=== PATIENT | female | born 2000 | race Asian ===

== ENCOUNTER 2022-03-01 09:49 | Emergency (ER) | payer BC, SELFPAY ==
[2022-03-01 10:06] VITALS: BP 106/76; PULSE 106; RESP 16; TEMP 36.8; O2SAT 95; BMI 20.1
--- NOTE | 2022-03-01 11:15 | ED.HA ---
HPI - Headache General Chief Complaint: Headache/Migraine Stated Complaint: Migraine Time Seen by Provider: 03/01/22 11:05 History of Present Illness HPI Narrative: This 21-year-old female comes in with headache that began 2 or 3 days ago. She has a history of migraine headaches. This 1 has not responded to her home medications. She reports nausea but has not had any vomiting. She does not report any neurologic deficits. This is not the worst headache of her life. Related Data Home Medications Medication Instructions Recorded Confirmed cetirizine 10 mg tablet 10 mg PO DAILY 03/01/22 03/01/22 mirtazapine 15 mg tablet 30 mg PO DAILY 03/01/22 03/01/22 norethindrone (contraceptive) 0.35 0.35 mg PO DAILY 03/01/22 03/01/22 mg tablet ondansetron 4 mg disintegrating 4 mg PO DAILY 03/01/22 03/01/22 tablet prazosin 1 mg capsule 1 mg PO DAILY 03/01/22 03/01/22 sumatriptan succinate 25 mg tablet 50 mg PO PRN 03/01/22 venlafaxine 75 mg capsule,extended 300 mg PO DAILY 03/01/22 03/01/22 release 24 hr Previous Rx's Medication Instructions Recorded ketorolac 10 mg tablet 10 mg PO Q8H 5 days #15 tabs 03/01/22 ondansetron HCl 4 mg tablet 4 mg PO Q6H #20 tabs 03/01/22 Allergies Allergy/AdvReac Type Severity Reaction Status Date / Time Penicillins Allergy Mild Verified 03/01/22 10:16 Review of Systems Status of ROS: Reports: 10 or more systems reviewed and unremarkable except as noted in History and below Narrative: Constitutional: No fevers, no weight gain or loss. Eyes: No discharge. No vision changes. HENT: No congestion, no sore throat, no ear pain. Cardiovascular: No chest pain, no palpitations. Respiratory: No shortness of breath, no wheezes, no cough. Gastrointestinal: No abdominal pain, no vomiting, no diarrhea. Genitourinary: No dysuria, no hematuria. Musculoskeletal: Normal range of motion. Skin: No rashes, no pruritis. Neurological: No dizziness, weakness, sensory change, speech change. Endo/Heme/Allergies: No bruising or bleeding. No polydipsia. Pysch: This patient admits to having ongoing depression symptoms and has thoughts of suicide but does not have any particular plan. She is seeing a therapist and states repeatedly that she does not feel unsafe to herself. She did have her antidepressant medicines increased a few weeks ago. All other systems reviewed and are negative. PFSH PFS Social History Smoking Status: Never smoker Do you use any of these nicotine containing products: None Second hand tobacco smoke exposure: No How often do you have a drink containing alcohol: never AUDIT-C Alcohol total score: 0 Non-prescribed substance use: denies use service: No Exam Narrative: Exam Narrative: Constitutional: Well-developed, well-nourished, no acute distress. She is tearful because of her migraine headache. HEENT: Normocephalic, atraumatic. Neck: Normal range of motion. Nontender. Supple. Heart: Intact distal pulses. Lungs: No chest discomfort. No wheezes, rhonchi, or rales. Abdomen: Nontender. Back: Normal range of motion. Extremities: Normal range of motion. No injury. Skin: Intact. No rash. Warm. No erythema or pallor. Neurologic: No altered sensation. No weakness. Alert and oriented. Psychiatric: No suicidality. No anxiety or depression. No insomnia. Nursing notes and vitals signs are reviewed. Const: Vital Signs, click to edit/add: Vital Signs - 24 hr 03/01/22 10:06 03/01/22 11:50 Temperature 98.2 F Pulse Rate [Right Pulse Oximeter] 106 H 107 H Respiratory Rate 16 20 Blood Pressure [Ri ght Upper Arm] 106/76 117/95 H Pulse Oximetry 95 98 Oxygen Delivery Me thod Room Air Room Air Course Vital Signs Vital signs: Initial Vital Signs Temperature 98.2 F 03/01/22 10:06 Temperature Source Temporal Artery Scan 03/01/22 10:06 Pulse Rate 106 H 03/01/22 10:06 Pulse Rhythm 03/01/22 10:06 Respiratory Rate 16 03/01/22 10:06 Blood Pressure 106/76 03/01/22 10:06 Blood Pressure Mean 86 03/01/22 10:06 Blood Pressure Position Sitting 03/01/22 10:06 Pulse Oximetry 95 03/01/22 10:06 Oxygen Delivery Method 03/01/22 10:06 Vital Signs Temperature 98.2 F 03/01/22 10:06 Pulse Rate 106 H 03/01/22 10:06 Respiratory Rate 16 03/01/22 10:06 Blood Pressure 106/76 03/01/22 10:06 Pulse Oximetry 95 03/01/22 10:06 Oxygen Delivery Method 03/01/22 10:06 Temperature 98.2 F 03/01/22 10:06 Pulse Rate 107 H 03/01/22 11:50 Respiratory Rate 20 03/01/22 11:50 Blood Pressure 117/95 H 03/01/22 11:50 Pulse Oximetry 98 03/01/22 11:50 Oxygen Delivery Method 03/01/22 11:50 MDM - Headache MDM Narrative Medical decision making narrative: This patient comes in with a typical migraine headache for her but symptoms have not resolved despite taking her home medicines. She states that she has run out of her nausea medicine. An IV was established where she received Toradol 30 mg, Benadryl 50 mg, and Zofran 4 mg. She states that her headache now is completely gone. I did revisit her statement to the nurse that she does have depression with suicidal thoughts. She states that this is nothing new for her and there is nothing worse in this regard. She does have a therapist that she is connected with and is taking medicines according to plan. She repeatedly reassures me that she is not on safe to herself. She is okay to return home. I did provide prescriptions for Zofran and Toradol. Discharge Plan Discharge Clinical Impression: Migraine Patient Disposition: Home, Self-Care Condition: Improved Additional Instructions: Use medications as needed and indicated. Follow up with MD and therapist or return if worsening symptoms occur. Prescriptions: New ondansetron HCl 4 mg tablet 4 mg PO Q6H Qty: 20 0RF ketorolac 10 mg tablet 10 mg PO Q8H 5 Days Qty: 15 0RF No Action venlafaxine 75 mg capsule,extended release 24hr 300 mg PO DAILY Label Comments: TAKE 1 CAPSULE DAILY WITH THE 150MG CAPSULE FOR TOTAL DAILY DOSE OF 225MG norethindrone (contraceptive) 0.35 mg tablet 0.35 mg PO DAILY cetirizine 10 mg tablet 10 mg PO DAILY mirtazapine 15 mg tablet 30 mg PO DAILY Label Comments: TAKE 1 TABLET BY MOUTH AT BEDTIME prazosin 1 mg capsule 1 mg PO DAILY Label Comments: TAKE 1 CAPSULE BY MOUTH AT BEDTIME ondansetron 4 mg tablet,disintegrating 4 mg PO DAILY sumatriptan succinate 25 mg tablet 50 mg PO PRN Follow Up/Referrals: Provider,Not a Local [Primary Care Provider] - Stand Alone Forms: [employer] Info Instructions
[2022-03-01] MEDS: ONDANSETRON 2 MG/ML inj 4 MG IVP (11:33)
[2022-03-01] MEDS: KETOROLAC 30 MG/ML inj IVP (11:36)
[2022-03-01] MEDS: diphenhydrAMINE 50 MG/ML inj IVP (11:39)
[2022-03-01 11:50] VITALS: BP 117/95; PULSE 107; RESP 20; O2SAT 98
--- NOTE | 2022-03-01 12:01 | ED.NURSE ---
Answered yes to suicide questions. States she is suicidal. No plan. States she has a therapist and a psychologist. Last spoke with her therapist last week. States she has a plan to keep her safe. Then right after giving benedryl pt sat straight and started gasping and cough. Pt was able to control the coughing. Pt stated that she felt cold and heaviness in her chest. Pt vs taken. Sats 100%. Pt stated the episode had passed and she continued to feel light headed. Dr Louise updated on all of this.
[2022-03-01 13:00] VITALS: BP 111/64; PULSE 77; RESP 20; O2SAT 100
== END 2022-03-01 13:05 | disposition home or self-care (01) ==
PROVIDERS: Emergency Provider Emergency Medicine Emergency Medical Services
DX: G43.909 Migraine, unspecified, not intractable, without status migrainosus (principal)
CPT/HCPCS: 96374; 96375; 99283; 99284; J1200; J1885; J2405

== ENCOUNTER 2022-07-29 11:53 | Emergency (ER) | payer BC, SELFPAY ==
[2022-07-29 12:05] VITALS: BP 125/86; PULSE 91; RESP 16; O2SAT 99; BMI 19.2
[2022-07-29 12:26] VITALS: PULSE 86; O2SAT 100
[2022-07-29 12:30] VITALS: PULSE 79; O2SAT 100
[2022-07-29 12:31] VITALS: BP 117/84; PULSE 90; O2SAT 100
[2022-07-29 12:32] VITALS: TEMP 36.4
--- NOTE | 2022-07-29 13:08 | ED.GENADULT ---
HPI - General Adult General Chief complaint: Chest Pain Stated complaint: Tightness in chest, irregular heartrate Time Seen by Provider: 07/29/22 12:05 History of Present Illness HPI narrative: This 22-year-old female comes in reporting an episode of palpitations upon awakening this morning. She states that her heart seemed to be pounding and was going a little faster than usual. She does not report any exercise intolerance and and otherwise is in good health except for some loss of sensation and strength to her upper extremities at times. She has seen an orthopedic surgeon in this regard and has also been to [facility] developer. She is going for further evaluation for thoracic outlet syndrome. She did start Focalin as a new medicine about a month ago but otherwise is not on any new meds. She states that she feels back to normal at this time. There was no report of rapid heart rate or irregular rhythm. She does have some slight chest discomfort in the upper chest and states that this is reproducible when getting in certain positions. She reports some associated upper back pain when laying in certain positions. Related Data Home Medications Medication Instructions Recorded Confirmed cetirizine 10 mg tablet 10 mg PO DAILY 03/01/22 07/29/22 mirtazapine 15 mg tablet 30 mg PO DAILY 03/01/22 07/29/22 norethindrone (contraceptive) 0.35 0.35 mg PO DAILY 03/01/22 07/29/22 mg tablet ondansetron 4 mg disintegrating 4 mg PO DAILY 03/01/22 03/01/22 tablet prazosin 1 mg capsule 1 mg PO DAILY 03/01/22 03/01/22 sumatriptan succinate 25 mg tablet 50 mg PO PRN 03/01/22 venlafaxine 75 mg capsule,extended 300 mg PO DAILY 03/01/22 07/29/22 release 24 hr dexmethylphenidate 10 mg mg PO 07/29/22 capsule,extended release [id number] venlafaxine 150 mg mg PO 07/29/22 capsule,extended release 24 hr Previous Rx's Medication Instructions Recorded ketorolac 10 mg tablet 10 mg PO Q8H 5 days #15 tabs 03/01/22 ondansetron HCl 4 mg tablet 4 mg PO Q6H #20 tabs 03/01/22 Allergies Allergy/AdvReac Type Severity Reaction Status Date / Time Penicillins Allergy Mild Verified 03/01/22 10:16 Review of Systems Status of ROS: Reports: 10 or more systems reviewed and unremarkable except as noted in History and below Narrative: Constitutional: No fevers, no weight gain or loss. Eyes: No discharge. No vision changes. HENT: No congestion, no sore throat, no ear pain. Cardiovascular: She reports a episode of heart pounding that has now resolved. She has some mild chest discomfort in the upper chest that is reproducible with certain positions. Respiratory: No shortness of breath, no wheezes, no cough. Gastrointestinal: No abdominal pain, no vomiting, no diarrhea. Genitourinary: No dysuria, no hematuria. Musculoskeletal: Normal range of motion. Skin: No rashes, no pruritis. Neurological: No dizziness, weakness, sensory change, speech change. Endo/Heme/Allergies: No bruising or bleeding. No polydipsia. Pysch: no suicidality, no anxiety, no insomnia. All other systems reviewed and are negative. PFSH [facility] Social History Smoking Status: Never smoker Do you use any of these nicotine containing products: None Second hand tobacco smoke exposure: No How often do you have a drink containing alcohol: never AUDIT-C Alcohol total score: 0 Non-prescribed substance use: denies use service: No Exam Narrative: Exam Narrative: Constitutional: Well-developed, well-nourished, no acute distress. HEENT: Normocephalic, atraumatic. Neck: Normal range of motion. Nontender. Supple. Heart: Regular. No murmurs. Normal rate. Intact distal pulses. Lungs: Clear to auscultation. No chest discomfort. No wheezes, rhonchi, or rales. Abdomen: Normal bowel sounds. Nontender. No rebound tenderness. Genitalia: Deferred. Back: No midline tenderness. Normal range of motion. Extremities: Normal range of motion. No injury. Skin: Intact. No rash. Warm. No erythema or pallor. Neurologic: No altered sensation. No weakness. Alert and oriented. Psychiatric: No suicidality. No anxiety or depression. No insomnia. Nursing notes and vitals signs are reviewed. Const: Vital Signs, click to edit/add: Vital Signs - 24 hr 07/29/22 12:05 07/29/22 12:26 07/29/22 12:32 Temperature 97.6 F Pulse Rate 86 Pulse Rate [Pulse Oximeter] 91 Respiratory Rate 16 Blood Pressure Blood Pressure [Le ft Upper Arm] 125/86 Pulse Oximetry 99 100 Oxygen Delivery Me thod Room Air 07/29/22 12:30 07/29/22 12:31 Temperature Pulse Rate 79 90 Pulse Rate [Pulse Oximeter] Respiratory Rate Blood Pressure 117/84 Blood Pressure [Le ft Upper Arm] Pulse Oximetry 100 100 Oxygen Delivery Me thod Course Vital Signs Vital signs: Initial Vital Signs Pulse Rate 91 07/29/22 12:05 Pulse Rhythm 07/29/22 12:05 Pulse Strength 3+ Normal 07/29/22 12:05 Respiratory Rate 16 07/29/22 12:05 Blood Pressure 125/86 07/29/22 12:05 Blood Pressure Mean 99 07/29/22 12:05 Blood Pressure Position Supine 07/29/22 12:05 Pulse Oximetry 99 07/29/22 12:05 Oxygen Delivery Method 07/29/22 12:05 Vital Signs Pulse Rate 91 07/29/22 12:05 Respiratory Rate 16 07/29/22 12:05 Blood Pressure 125/86 07/29/22 12:05 Pulse Oximetry 99 07/29/22 12:05 Oxygen Delivery Method 07/29/22 12:05 Temperature 97.6 F 07/29/22 12:32 Pulse Rate 90 07/29/22 12:31 Respiratory Rate 16 07/29/22 12:05 Blood Pressure 117/84 07/29/22 12:31 Pulse Oximetry 100 07/29/22 12:31 Oxygen Delivery Method 07/29/22 12:05 Medical Decision Making MDM Narrative Medical decision making narrative: This patient comes in with the above-stated symptoms. She arrives here feeling back to normal and has normal vital signs. An EKG shows normal sinus rhythm without ST or T-wave abnormalities. I discussed lab and imaging options with the patient who declined these in a process of shared decision making. I did use bedside ultrasound unofficially to evaluate her heart and lungs showing normal findings. This was reassuring to the patient. It seems that there is a musculoskeletal component to her chest discomfort as she can reproduce this with certain positions. She has had her blood checked in the past including workup for her thyroid and autoimmune diseases. These of all returned normal. She does have a follow-up arrangement with avascular specialist regarding the possibility of thoracic outlet syndrome. She states that her blood pressure and pulse in her upper extremities decreased significantly when raising her arms up above her head. ECG Data Attestation: I personally reviewed and interpreted this ECG as follows: Interpretation: Normal sinus rhythm. Rate is 82 beats per minute. There are no ST or T-wave abnormalities. Discharge Plan Discharge Clinical Impression: Acute chest wall pain, Heart palpitations Patient Disposition: Home, Self-Care Condition: Stable Additional Instructions: Continue current plans. Follow up with MD as scheduled. Use [id number] medicines as needed and directed. Return if recurrent or worsening symptoms happen. Prescriptions: No Action venlafaxine 75 mg capsule,extended release 24hr 300 mg PO DAILY Label Comments: TAKE 1 CAPSULE DAILY WITH THE 150MG CAPSULE FOR TOTAL DAILY DOSE OF 225MG norethindrone (contraceptive) 0.35 mg tablet 0.35 mg PO DAILY cetirizine 10 mg tablet 10 mg PO DAILY mirtazapine 15 mg tablet 30 mg PO DAILY Label Comments: TAKE 1 TABLET BY MOUTH AT BEDTIME prazosin 1 mg capsule 1 mg PO DAILY Label Comments: TAKE 1 CAPSULE BY MOUTH AT BEDTIME ondansetron 4 mg tablet,disintegrating 4 mg PO DAILY sumatriptan succinate 25 mg tablet 50 mg PO PRN ondansetron HCl 4 mg tablet 4 mg PO Q6H Qty: 20 0RF ketorolac 10 mg tablet 10 mg PO Q8H 5 Days Qty: 15 0RF venlafaxine 150 mg capsule,extended release 24hr PO Label Comments: TAKE 1 CAPSULE BY MOUTH EVERY DAY ALONG WITH 75MG dexmethylphenidate 10 mg capsule,ER biphasic 50-50 PO Label Comments: TAKE 1 CAPSULE BY MOUTH DAILY Follow Up/Referrals: Provider,Not a Local [Primary Care Provider] - Stand Alone Forms: [employer] Info Instructions
== END 2022-07-29 13:20 | disposition home or self-care (01) ==
PROVIDERS: Emergency Provider Emergency Medicine Emergency Medical Services
DX: R00.2 Palpitations (principal); R07.89 Other chest pain
CPT/HCPCS: 93005; 99283; 99284